=== PATIENT | female | born 1995 | race Caucasian/White ===

== ENCOUNTER 2016-08-21 12:27 | Emergency (ER) | payer OTHER ==
[2016-08-21 12:32] VITALS: BP 129/87
[2016-08-21 13:03] LABS: Manual Entry Verification MD; UR Preg Internal Control QC Line Present
--- NOTE | 2016-08-21 13:05 | ED ---
Lower Extremity - HPI Summary HPI Summary: Pt here w/ Rt ankle pain since twisting in the mud yesterday. Swelling aling lateral side. Painful with weight bearing. Denies numbness, tingling, weakness. Tried ibuprofen yesterday. Has not iced. No h/o injury here but does admit to spraining Lt ankle in the past.Pain is constant but worse w/ movement and WB as mentioned above. - History of Current Complaint Chief Complaint: EDExtremityLower Stated Complaint: RT ANKLE INJURY Time Seen by Provider: 08/21/16 12:34 Hx Obtained From: Patient Pain Intensity: 7 - Allergies/Home Medications Allergies/Adverse Reactions: Allergies Allergy/AdvReac Type Severity Reaction Status Date / Time No Known Allergies Allergy Verified 02/08/16 21:52 PMH/Surg Hx/FS Hx/Imm Hx Previously Healthy: Yes Endocrine/Hematology History: Denies: Hx Anticoagulant Therapy, Hx Blood Disorders, Hx Unexplained Bleeding Respiratory History: Reports: Hx Asthma Musculoskeletal History: Reports: Other Musculoskeletal History - Lt ankle sprain resolved w/o complications Sensory History: Reports: Hx Contacts or Glasses Opthamlomology History: Reports: Hx Contacts or Glasses - Surgical History Surgery Procedure, Year, and Place: NASAL SURGERY A CHILD Infectious Disease History: No Infectious Disease History: Denies: Traveled Outside the [place] in Last 30 Days - Family History Known Family History: Negative: Cardiac Disease, Hypertension, Diabetes - Social History Occupation: Student Lives: With Family Alcohol Use: None Substance Use Type: Reports: None Smoking Status (MU): Never Smoked Tobacco Review of Systems Negative: Fever, Chills Positive: no symptoms reported Musculoskeletal: Other - see HPI Skin: Negative Neurological: Negative Psychological: Normal All Other Systems Reviewed And Are Negative: Yes Physical Exam Triage Information Reviewed: Yes Vital Signs On Initial Exam: Initial Vitals Temp Pulse Resp BP Pulse Ox 97.8 F 86 14 129/87 100 08/21/16 12:30 08/21/16 12:30 08/21/16 12:30 08/21/16 12:30 08/21/16 12:30 Vital Signs Reviewed: Yes Appearance: Positive: Well-Appearing, No Pain Distress, Well-Nourished Skin: Positive: Warm, Dry - edema over Rt lateral malleolus w/o skin changes Head/Face: Positive: Normal Head/Face Inspection Eyes: Positive: Normal, EOMI, Conjunctiva Clear ENT: Positive: Hearing grossly normal, Pharynx normal - mucosa moist Respiratory/Lung Sounds: Positive: Breath Sounds Present Cardiovascular: Positive: Normal, Pulses are Symmetrical in both Upper and Lower Extremities Musculoskeletal: Positive: Strength/ROM Intact, Pain @ - anterior ankle mortise and medial malleolus are TTP; limited FROM d/t pain - worse w/ plantar flexion and inversion; heel NTTP - no gross deformity Neurological: Positive: Normal, Sensory/Motor Intact, Alert, Oriented to Person Place, Time, CN Intact II-III Psychiatric: Positive: Normal Diagnostics - Vital Signs Vital Signs Temp Pulse Resp BP Pulse Ox 08/21/16 12:30 97.8 F 86 14 129/87 100 - Laboratory Lab Statement: Any lab studies that have been ordered have been reviewed, and results considered in the medical decision making process. Lower Extremity Course/Dx - Diagnoses Provider Diagnoses: Left ankle sprain Discharge - Discharge Plan Condition: Stable Disposition: HOME Patient Education Materials: Ankle Sprain (ED), Ankle Stirrup Splint (ED), Crutch Instructions (ED) Referrals: [facility] [Outside] Additional Instructions: Rest, ice, elevate and wrap with CADEN for swelling Take ibuprofen 600mg every 6 hours with food for pain, swelling - may alternate with acetaminophen 650mg every 6 hours Use crutches to rest and weight bear as tolerated Gentle stretches Follow[facility] with [facility] in 1-2 weeks if symptoms persist
--- NOTE | 2016-08-21 13:36 | RAD ---
INDICATION: Right ankle pain and swelling one day after a slip and fall injury COMPARISON: None. TECHNIQUE: 3 views of the right ankle were obtained. FINDINGS: There is a very small amount of soft tissue swelling overlying the fibular malleolus. The bones are normal alignment. Joint spaces appear maintained. No fracture is seen. IMPRESSION: MILD RIGHT ANKLE SOFT TISSUE SWELLING WITHOUT UNDERLYING FRACTURE OR DISLOCATION. If the patient's symptoms persist, follow-up imaging is recommended.
== END 2016-08-21 14:04 | disposition home or self-care (01) ==
LOC: ED 12:27
DX: S93.402A Sprain of unspecified ligament of left ankle, initial encounter (principal); M25.571 Pain in right ankle and joints of right foot; X58.XXXA Exposure to other specified factors, initial encounter; Y93.9 Activity, unspecified; Y92.9 Unspecified place or not applicable
CPT/HCPCS: 81025; 99282

== ENCOUNTER 2017-01-29 03:29 | Inpatient (IN) | payer OTHER ==
[2017-01-29 04:21] LABS: Hematocrit 42 % (35-47); Hemoglobin 14.6 g/dl (12.0-16.0); Mean Corpuscular HGB Conc 35 g/dl (31-36); Mean Corpuscular Hemoglobin 31 pg (27-31); Mean Corpuscular Volume 89 fL (80-97); Mean Platelet Volume 8 um3 (7.4-10.4); Red Blood Count 4.67 10^6/ul (4.0-5.4); Red Cell Distribution Width 13 % (10.5-15); White Blood Count 7.4 10^3/ul (3.5-10.8)
[2017-01-29 04:34] LABS: ALT 14 U/L (7-52); AST 17 U/L (13-39); Albumin 4.8 g/dL (3.2-5.2); Alkaline Phosphatase 52 U/L (34-104); Anion Gap 9 mmol/L (2-11); BUN/Creatinine Ratio 13.2 (8-20); Blood Urea Nitrogen 10 mg/dL (6-24); CO2 Carbon Dioxide 24 mmol/L (22-32); Calcium 9.3 mg/dL (8.6-10.3); Chloride 105 mmol/L (101-111); EGFR African American 124.8 (>60); Globulin 2.9 g/dL (2-4); Glucose 103 mg/dL (70-100); Potassium 3.6 mmol/L (3.5-5.0); Sodium 138 mmol/L (133-145); Total Protein 7.7 g/dL (6.4-8.9)
[2017-01-29 04:35] LABS: Benzodiazepine Urine Screen None Detected (None Detect)
[2017-01-29 04:39] LABS: Urine Bacteria Absent (Absent); Urine Bilirubin Negative (Negative); Urine Glucose Negative (Negative); Urine Nitrite Negative (Negative)
[2017-01-29 04:50] LABS: Acetaminophen < 15 mcg/mL; Alcohol 200 mg/dL (<10); Salicylate < 2.50 mg/dL (<30)
[2017-01-29 05:05] LABS: TSH (Thyroid Stimulating Horm) 4.45 mcIU/mL (0.34-5.60)
--- NOTE | 2017-01-29 06:30 | ED ---
Joel Gutierrez Rebecca, scribed for Carlos Goldberg MD on 01/29/17 at 0359 . Psychiatric Complaint - HPI Summary HPI Summary: Pt is a 21 y/o F BIBA as a 941 who presents to ED c/o depression and SIs s/p self harm. Tonight, the pt put a belt around her neck and tightened it. She is unsure of how long she was like this, approximating 30 minutes, before she was found by a friend. Pt states that her neck feels "tense" though she denies any pain. - History Of Current Complaint Chief Complaint: EDMentalHealth Hx Obtained From: Patient Onset/Duration: Still Present Character: Depressed Aggravating Factor(s): Nothing Alleviating Factor(s): Nothing Associated Signs And Symptoms: Positive: Negative Has Suicidal: Reports: Thoughts, Demonstrates Gesture - Allergies/Home Medications Allergies/Adverse Reactions: Allergies Allergy/AdvReac Type Severity Reaction Status Date / Time [place] Allergy Rash Verified 01/29/17 03:35 PMH/Surg Hx/FS Hx/Imm Hx Endocrine/Hematology History: Denies: Hx Anticoagulant Therapy, Hx Blood Disorders, Hx Unexplained Bleeding Respiratory History: Reports: Hx Asthma Musculoskeletal History: Reports: Other Musculoskeletal History - Lt ankle sprain resolved w/o complications Sensory History: Reports: Hx Contacts or Glasses Opthamlomology History: Reports: Hx Contacts or Glasses - Surgical History Surgery Procedure, Year, and Place: NASAL SURGERY A CHILD Infectious Disease History: No Infectious Disease History: Denies: Traveled Outside the [place] in Last 30 Days - Family History Known Family History: Negative: Cardiac Disease, Hypertension, Diabetes - Social History Alcohol Use: None Substance Use Type: Reports: None Smoking Status (MU): Never Smoked Tobacco Review of Systems Negative: Fever Positive: Other - Neck is "tense"; negative neck pain Positive: Depressed, Other - Sis with attempted gesture All Other Systems Reviewed And Are Negative: Yes Physical Exam - Summary Physical Exam Summary: General: well-appearing, no pain distress Skin: warm, color reflects adequate perfusion, dry Head: normal Eyes: EOMI, RIANA ENT: normal, posterior pharynx is benign Neck: supple, nontender, no ecchymosis, no crepitus, FROM Respiratory: CTA, breath sounds present Cardiovascular: RRR Abdomen: soft, nontender Bowel: present Musculoskeletal: normal, strength/ROM intact Neurological: normal, sensory/motor intact, A&O x3 Psychological: tearful Triage Information Reviewed: Yes Vital Signs On Initial Exam: Initial Vitals Temp Pulse Resp BP Pulse Ox 98.6 F 119 20 138/81 97 01/29/17 03:35 01/29/17 03:35 01/29/17 03:35 01/29/17 03:35 01/29/17 03:35 Vital Signs Reviewed: Yes Diagnostics - Vital Signs Vital Signs Temp Pulse Resp BP Pulse Ox 01/29/17 03:35 98.6 F 119 20 138/81 97 - Laboratory Lab Results: Lab Results 01/29/17 01/29/17 01/29/17 Range/Units 04:04 04:04 04:04 WBC 7.4 (3.5-10.8) 10^3/ul RBC 4.67 (4.0-5.4) 10^6/ul Hgb 14.6 (12.0-16.0) g/dl Hct 42 (35-47) % MCV 89 (80-97) fL MCH 31 (27-31) pg MCHC 35 (31-36) g/dl RDW 13 (10.5-15) % Plt Count 261 (150-450) 10^3/ul MPV 8 (7.4-10.4) um3 Neut % (Auto) 64.5 (38-83) % Lymph % (Auto) 29.2 (25-47) % Mora % (Auto) 4.7 (1-9) % Eos % (Auto) 0.9 (0-6) % Baso % (Auto) 0.7 (0-2) % Absolute Neuts (auto) 4.8 (1.5-7.7) 10^3/ul Absolute Lymphs (auto) 2.2 (1.0-4.8) 10^3/ul Absolute Monos (auto) 0.3 (0-0.8) 10^3/ul Absolute Eos (auto) 0.1 (0-0.6) 10^3/ul Absolute Basos (auto) 0.1 (0-0.2) 10^3/ul Absolute Nucleated RBC 0 10^3/ul Nucleated RBC % 0.1 Sodium 138 (133-145) mmol/L Potassium 3.6 (3.5-5.0) mmol/L Chloride 105 (101-111) mmol/L Carbon Dioxide 24 (22-32) mmol/L Anion Gap 9 (2-11) mmol/L BUN 10 (6-24) mg/dL Creatinine 0.76 (0.51-0.95) mg/dL Est GFR ( Amer) 124.8 (>60) Est GFR (Non-Af Amer) 97.0 (>60) BUN/Creatinine Ratio 13.2 (8-20) Glucose 103 H (70-100) mg/dL Calcium 9.3 (8.6-10.3) mg/dL Total Bilirubin 0.80 (0.2-1.0) mg/dL AST 17 (13-39) U/L ALT 14 (7-52) U/L Alkaline Phosphatase 52 (34-104) U/L Total Protein 7.7 (6.4-8.9) g/dL Albumin 4.8 (3.2-5.2) g/dL Globulin 2.9 (2-4) g/dL Albumin/Globulin Ratio 1.7 (1-3) TSH 4.45 (0.34-5.60) mcIU/mL Beta HCG, Quant < 0.60 mIU/mL Urine Color Urine Appearance Urine pH (5-9) Ur Specific [place] (1.010-1.030) Urine Protein (Negative) Urine Ketones (Negative) Urine Blood (Negative) Urine Nitrate (Negative) Urine Bilirubin (Negative) Urine Urobilinogen (Negative) Ur Leukocyte Esterase (Negative) Urine WBC (Auto) (Absent) Urine RBC (Auto) (Absent) Urine Bacteria (Absent) Urine Glucose (Negative) Salicylates < 2.50 (<30) mg/dL Urine Opiates Screen None detected (None Detect) Acetaminophen < 15 mcg/mL Ur Barbiturates Screen None detected (None Detect) Ur Phencyclidine Scrn None detected (None Detect) Ur Amphetamines Screen None detected (None Detect) U Benzodiazepines Scrn None detected (None Detect) Urine Cocaine Screen None detected (None Detect) U Cannabinoids Screen None detected (None Detect) Serum Alcohol 200 H (<10) mg/dL 01/29/17 Range/Units 04:04 WBC (3.5-10.8) 10^3/ul RBC (4.0-5.4) 10^6/ul Hgb (12.0-16.0) g/dl Hct (35-47) % MCV (80-97) fL MCH (27-31) pg MCHC (31-36) g/dl RDW (10.5-15) % Plt Count (150-450) 10^3/ul MPV (7.4-10.4) um3 Neut % (Auto) (38-83) % Lymph % (Auto) (25-47) % Mora % (Auto) (1-9) % Eos % (Auto) (0-6) % Baso % (Auto) (0-2) % Absolute Neuts (auto) (1.5-7.7) 10^3/ul Absolute Lymphs (auto) (1.0-4.8) 10^3/ul Absolute Monos (auto) (0-0.8) 10^3/ul Absolute Eos (auto) (0-0.6) 10^3/ul Absolute Basos (auto) (0-0.2) 10^3/ul Absolute Nucleated RBC 10^3/ul Nucleated RBC % Sodium (133-145) mmol/L Potassium (3.5-5.0) mmol/L Chloride (101-111) mmol/L Carbon Dioxide (22-32) mmol/L Anion Gap (2-11) mmol/L BUN (6-24) mg/dL Creatinine (0.51-0.95) mg/dL Est GFR ( Amer) (>60) Est GFR (Non-Af Amer) (>60) BUN/Creatinine Ratio (8-20) Glucose (70-100) mg/dL Calcium (8.6-10.3) mg/dL Total Bilirubin (0.2-1.0) mg/dL AST (13-39) U/L ALT (7-52) U/L Alkaline Phosphatase (34-104) U/L Total Protein (6.4-8.9) g/dL Albumin (3.2-5.2) g/dL Globulin (2-4) g/dL Albumin/Globulin Ratio (1-3) TSH (0.34-5.60) mcIU/mL Beta HCG, Quant mIU/mL Urine Color Straw Urine Appearance Clear Urine pH 6.0 (5-9) Ur Specific [place] 1.003 L (1.010-1.030) Urine Protein Negative (Negative) Urine Ketones Negative (Negative) Urine Blood 1+ H (Negative) Urine Nitrate Negative (Negative) Urine Bilirubin Negative (Negative) Urine Urobilinogen Negative (Negative) Ur Leukocyte Esterase Negative (Negative) Urine WBC (Auto) Trace(0-5/hpf) (Absent) Urine RBC (Auto) Trace(0-2/hpf) (Absent) Urine Bacteria Absent (Absent) Urine Glucose Negative (Negative) Salicylates (<30) mg/dL Urine Opiates Screen (None Detect) Acetaminophen mcg/mL Ur Barbiturates Screen (None Detect) Ur Phencyclidine Scrn (None Detect) Ur Amphetamines Screen (None Detect) U Benzodiazepines Scrn (None Detect) Urine Cocaine Screen (None Detect) U Cannabinoids Screen (None Detect) Serum Alcohol (<10) mg/dL Result Diagrams: 01/29/17 04:04 01/29/17 04:04 Lab Statement: Any lab studies that have been ordered have been reviewed, and results considered in the medical decision making process. Course/Dx - Course Assessment/Plan: Allergy noted. Elevtaed BP noted. Medications reviewed. MHE PENDING AT SHIFT CHANGE. NO CRITICAL CARE TIME. - Differential Dx/Clinical Impression Provider Diagnosis: Choking episode, Mental health problem Discharge - Discharge Plan Condition: Stable Disposition: OTHER Discharge Disposition Comment: . Referrals: [facility] [Primary Care Provider] - The documentation as recorded by the Joel saeed Rebecca accurately reflects the service I personally performed and the decisions made by me, Carlos Goldberg MD.
[2017-01-30] MEDS ORDERED: hydrOXYzine HCL TAB* 50 MG PO PRN (14:47)
[2017-01-31] MEDS ORDERED: Influenza VAC *QUAD* 2017-18* 0.5 ML SYRINGE IM ONE (09:00)
[2017-01-31] MEDS ORDERED: Pneumococcal *Vac Polyvalent 0.5 ML VIAL IM ONE (09:00)
--- NOTE | 2017-01-31 12:45 | HP ---
H&P (Free Text) History and Physical: HPI: ---- Patient is a 21yo female with no significant PPHx. Patient presents to the [facility] ED, BIBA, on 9. status due to worsening depressive symptoms and is s/p suicidal gesture / suicide attempt where she was found with a belt around her neck while tightening it. Patient is psychotropic med naive and has no hx of outpt MH encounters. This is patient's 1st psychiatric admission. In the ED, patient noted to have a BAL of 200. She reports the evening prior to presentation to the ED she drank heavily after finding out she'd been lied to for months by her roommate. 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 Patient reports over the last month, she'd come to find out that her roommate had been lying to her about a number of things, ie: roommate's mother having cancer and things of this nature. Patient felt so upset to find out these things weren't true, she contacted her roommates mother, suggested therapy, and offered her help as a friend. She reported she stayed close with her roommate and monitored her and was happy to be told by her roommate that she was attending counseling to work on her issues. Patient reports approx. a month ago she found out that her roommate was still lying, now lying about things to others related to her. Patient reports now the roommate told people that patient's mother had cancer. She reports identifying this as the trigger of her drop in mood. Patient reports anger and frustration with her drop in grades as she prioritized her roommate over her studies. Patient reports though fair sleep, energy and reports she attended classes through this entire situation. Patient reports no drop in concentration , memory, or interest in her studies. Patient reports she found out just prior to this admission that her roommate actually wasn't in therapy. This precipitated her decision to drink and contributed to her SI and suicidal gesture / attempt. Patient currently denies SI/HI and AH/VH. She reports a good mood on interview and is bright in affect. Patient expresses increased insight on friends recent behavior and lies and their effect on her emotions and conduct. Sleep and appetite have been wnl since admission. Patient bright, pleasant, and social with peers and staff since admission. Patient continues to live with her roommate. She is focused on detaching from the friendship. Patient reports 1 prior suicide attempt which occurred in [place] Patient reports the stressor was the applications process for and frustrations with finding financial analyst intern for college. Patient denies hx of trauma in childhood. Patient reports no signs of psychosis, nor were any elicited on exam. Past Psych Hx: Inpt - Patient reports this is her 1st psychiatric admission. Outpt - Patient reports no hx of encounters at outpt clinics. Psychotropic med hx - Psychotropic med naive. Suicide attempt Hx / SIB Hx: Patient reports 1 prior suicide attempt which occurred in [place] Patient reports the stressor was the applications process and frustrations with finding financial analyst intern for college. She reports no hx of SIB. Trauma Hx: Patient denies hx of physical, emotional, or sexual abuse in childhood. Substance Hx: Patient denies hx of abuse of alcohol. She reports the evening prior to presentation to the ED she drank heavily after finding out she'd been lied to for months by her roommate. Patient denies hx of use of illicit substances. Medical Hx: Asthma Allergies: --------- NKDA [place] Family Hx: Patient reports hx of depression in family members on mom's side. Patient reports there is no family hx of KAYA issues. Patient reports there is no family hx of completed or attempted suicide. Social Hx: --------- -Born in [place] -Raised by mom and dad -Has an older sister. She is close with her sibling -HLOE: currently a [employer] at [employer] -Single, never , no kids -Lives in an apartment with roommate. -Patient reports no access to firearms. -Patient reports no stockpiles of old Rx pills. Home Medications: None VITALS: --------- Vital Signs (72 hours) 01/30/17 01/30/17 01/30/17 15:08 15:15 15:55 Temperature 98.7 F 98.7 F 98.6 F Pulse Rate 75 87 86 Respiratory 16 16 17 Rate Blood Pressure 107/73 107/73 115/87 (mmHg) O2 Sat by Pulse 100 99 100 Oximetry 02/01/17 07:25 Temperature 98.2 F Pulse Rate 77 Respiratory 16 Rate Blood Pressure 114/71 (mmHg) O2 Sat by Pulse 100 Oximetry LABS: -------- Laboratory Tests 01/29/17 01/29/17 01/29/17 04:04 04:04 04:04 WBC 7.4 RBC 4.67 Hgb 14.6 Hct 42 MCV 89 MCH 31 MCHC 35 RDW 13 Plt Count 261 MPV 8 Neut % (Auto) 64.5 Lymph % (Auto) 29.2 [place] % (Auto) 4.7 Eos % (Auto) 0.9 Baso % (Auto) 0.7 Absolute Neuts (auto) 4.8 Absolute Lymphs (auto) 2.2 Absolute Monos (auto) 0.3 Absolute Eos (auto) 0.1 Absolute Basos (auto) 0.1 Absolute Nucleated RBC 0 Nucleated RBC % 0.1 Sodium 138 Potassium 3.6 Chloride 105 Carbon Dioxide 24 Anion Gap 9 BUN 10 Creatinine 0.76 Est GFR ( Amer) 124.8 Est GFR (Non-Af Amer) 97.0 BUN/Creatinine Ratio 13.2 Glucose 103 H Calcium 9.3 Total Bilirubin 0.80 AST 17 ALT 14 Alkaline Phosphatase 52 Total Protein 7.7 Albumin 4.8 Globulin 2.9 Albumin/Globulin Ratio 1.7 TSH 4.45 Beta HCG, Quant < 0.60 Urine Color Urine Appearance Urine pH Ur Specific [place] Urine Protein Urine Ketones Urine Blood Urine Nitrate Urine Bilirubin Urine Urobilinogen Ur Leukocyte Esterase Urine WBC (Auto) Urine RBC (Auto) Urine Bacteria Urine Glucose Salicylates < 2.50 Urine Opiates Screen None detected Acetaminophen < 15 Ur Barbiturates Screen None detected Ur Phencyclidine Scrn None detected Ur Amphetamines Screen None detected U Benzodiazepines Scrn None detected Urine Cocaine Screen None detected U Cannabinoids Screen None detected Serum Alcohol 200 H 01/29/17 04:04 WBC RBC Hgb Hct MCV MCH MCHC RDW Plt Count MPV Neut % (Auto) Lymph % (Auto) [place] % (Auto) Eos % (Auto) Baso % (Auto) Absolute Neuts (auto) Absolute Lymphs (auto) Absolute Monos (auto) Absolute Eos (auto) Absolute Basos (auto) Absolute Nucleated RBC Nucleated RBC % Sodium Potassium Chloride Carbon Dioxide Anion Gap BUN Creatinine Est GFR ( Amer) Est GFR (Non-Af Amer) BUN/Creatinine Ratio Glucose Calcium Total Bilirubin AST ALT Alkaline Phosphatase Total Protein Albumin Globulin Albumin/Globulin Ratio TSH Beta HCG, Quant Urine Color Straw Urine Appearance Clear Urine pH 6.0 Ur Specific [place] 1.003 L Urine Protein Negative Urine Ketones Negative Urine Blood 1+ H Urine Nitrate Negative Urine Bilirubin Negative Urine Urobilinogen Negative Ur Leukocyte Esterase Negative Urine WBC (Auto) Trace(0-5/hpf) Urine RBC (Auto) Trace(0-2/hpf) Urine Bacteria Absent Urine Glucose Negative Salicylates Urine Opiates Screen Acetaminophen Ur Barbiturates Screen Ur Phencyclidine Scrn Ur Amphetamines Screen U Benzodiazepines Scrn Urine Cocaine Screen U Cannabinoids Screen Serum Alcohol PHYSICAL EXAM: Patient declines PE. Please see H&P documented in the [facility]-ED: Psychiatric Complaint note dated 01/29. MSE: ----- Appearance - thin build female, fair hygeine, in NAD Behavior - calm, cooperative Speech - RVR, prosody wnl Eye Contact - good Mood - "better" Affect - bright TP - linear and GD TC - insightful of her friends recent behavior and lies and their effect on her emotions and conduct Perception - no signs of psychosis noted or reported Orientation - A&Ox4 Cognition - intact Insight - fair Judgement - fair SI / HI - SI present on admission, currently denies both ASSESSMENT: 1. Adjustment d/o, with disturbance of emotions and conduct PLAN: ------ 1. Continue admission to [facility] for safety and symptom mx. 2. Patient interested in psychotherapy. Initiation of an anti-depressant isn't indicated. 3. Continue compiling collateral information from family. 4. Referral to outpt MH services. 5. Patient to participate in milieu activities and groups.
[2017-01-31] MEDS: Acetaminophen TAB* 325 MG PO PRN ×2 (13:57→22:57)
[2017-02-01 07:47] VITALS: BP 114/71
[2017-02-01] MEDS: Acetaminophen TAB* 325 MG PO PRN (08:36)
--- NOTE | 2017-02-02 08:07 | DS ---
Subjective - Subjective Service Types: [address] [facility] Day Mgmt simple under 30 min Subjective: PATIENT DISCHARGED ON 02/01/17 at 1500 to her mother who had come to pick her up. On day of discharge, patient is noted to still be bright in affect, pleasant, socializing with female peers and attending all groups. She has been engaged in therapy since admission. Patient has not been observed displaying emotional lability, but has been calm and cooperative. Patient again denies SI/HI and AH/VH. Patient reports good sleep and appetite. Patient reports feeling ready for discharge. Per discussion with patient's mom and dad who are on the unit visiting, they feel also patient is ready for discharge and feel comfortable with her discharge today. Patient is psychiatrically stable. She is linear and GD in TP and future oriented in TC. 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 Discharge plan discussed, patient acknowledges understanding and is amenable. Patient instructed to call 911, crisis hotline, or self present to the ED if SI recurs. Patient will be discharged home with mom and dad who will return at 1500. Objective - Appearance Appearance: Well Developed/Nourished Dysmorphic Features: No Hygiene: Normal Grooming: Well Kept - Behavior Psychomotor Activities: Normal Exhibits Abnormal Movement: No - Attitude and Relatedness Attitude and Relatedness: Cooperative Eye Contact: Fair - Speech Quality: Unpressured Latencies: Normal Quantity: Appropriate - Mood Patient's Decription of Mood: "Good" - Affect Observed Affect: Good Affect Consistent with: Euthymia - Thought Process Patient's Thought Process: Coherent Thought Content: No Passive Wish, No Suicidal Planning, No Homicidal Ideation, No Paranoid Ideation - Sensorium Experiencing Hallucinations: No, Sensorium is Clear Type of Hallucinations: Visual: No, Auditory: No, Command: No - Level of Consciousness Level of Consciousness: Alert Orientation: Yes Intact, Yes Orientated to Time, Yes Orientated to Place, Yes Orientated to Person - Impulse Control Impulse Control: Intact - Insight and Judgement Insight and Judgement: Fair - Group Participation Particating in Group Activities: Yes - Medication Management Medication Management Adherence: Yes Treatment Course & Assessment Clinical Course & Impression: HOSPITAL COURSE: Patient is a 21yo female with no significant PPHx. Patient presents to the [facility] ED, [place], on status due to worsening depressive symptoms and is s/p suicidal gesture / suicide attempt where she was found with a belt around her neck while tightening it. Patient is psychotropic med naive and has no hx of outpt MH encounters. This is patient's 1st psychiatric admission. In the ED, patient noted to have a BAL of 200. She reports the evening prior to presentation to the ED she drank heavily after finding out she'd been lied to for months by her roommate. Patient and her roommate are students at [employer]. Patient reports over the last month, she'd come to find out that her roommate had been lying to her about a number of things, ie: roommate's mother having cancer and things of this nature. Patient felt so upset to find out these things weren't true, she contacted her roommates mother, suggested therapy, and offered her help as a friend. She reported she stayed close with her roommate and monitored her and was happy to be told by her roommate that she was attending counseling to work on her issues. Patient reports approx. a month ago she found out that her roommate was still lying, now lying about things to others related to her. Patient reports now the roommate told people that patient's mother had cancer. She reports identifying this as the trigger of her drop in mood. Patient reports anger and frustration with her drop in grades as she prioritized her roommate over her studies. Patient reports though fair sleep, energy and reports she attended classes through this entire situation. Patient reports no drop in concentration , memory, or interest in her studies. Patient reports she found out just prior to this admission that her roommate actually wasn't in therapy. This precipitated her decision to drink and contributed to her SI and suicidal gesture / attempt. Patient currently denies SI/HI and AH/VH. She reports a good mood on interview and is bright in affect. Patient expresses increased insight on friends recent behavior and lies and their effect on her emotions and conduct. Sleep and appetite have been wnl since admission. Patient bright, pleasant, and social with peers and staff since admission. Patient continues to live with her roommate. She is focused on detaching from the friendship. Patient reports 1 prior suicide attempt which occurred in [place] Patient reports the stressor was the applications process for and frustrations with finding financial intern for college. Patient denies hx of trauma in childhood. Patient reports no signs of psychosis, nor were any elicited on exam. Patient on admission day #1, day of discharge, patient noted to be at baseline. 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 As at admission to the unit, patient is noted to still be bright in affect, pleasant, socializing with female peers and attending all groups. She has been engaged in therapy since admission. Patient has not been observed displaying emotional lability, but has been calm and cooperative. Patient again denies SI/HI and AH/VH. Patient reports good sleep and appetite. Patient reports feeling ready for discharge. Per discussion with patient's mom and dad who are on the unit visiting, they feel also patient is ready for discharge and feel comfortable with her discharge today. Patient is psychiatrically stable. She is linear and GD in TP and future oriented in TC. 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 Patient requested referral for psychotherapy. Discharge plan discussed, patient acknowledges understanding and is amenable. Patient instructed to call 911, crisis hotline, or self present to the ED if SI recurs. Patient will be discharged home with mom and dad who will return at 1500. DISCHARGE DIAGNOSIS: Adjustment disorder, with disturbance of mood and conduct CONSULTANTS: NONE PERTINENT LABS: Laboratory Tests 01/29/17 01/29/17 01/29/17 04:04 04:04 04:04 WBC 7.4 RBC 4.67 Hgb 14.6 Hct 42 MCV 89 MCH 31 MCHC 35 RDW 13 Plt Count 261 MPV 8 Neut % (Auto) 64.5 Lymph % (Auto) 29.2 [place] % (Auto) 4.7 Eos % (Auto) 0.9 Baso % (Auto) 0.7 Absolute Neuts (auto) 4.8 Absolute Lymphs (auto) 2.2 Absolute Monos (auto) 0.3 Absolute Eos (auto) 0.1 Absolute Basos (auto) 0.1 Absolute Nucleated RBC 0 Nucleated RBC % 0.1 Sodium 138 Potassium 3.6 Chloride 105 Carbon Dioxide 24 Anion Gap 9 BUN 10 Creatinine 0.76 Est GFR ( Amer) 124.8 Est GFR (Non-Af Amer) 97.0 BUN/Creatinine Ratio 13.2 Glucose 103 H Calcium 9.3 Total Bilirubin 0.80 AST 17 ALT 14 Alkaline Phosphatase 52 Total Protein 7.7 Albumin 4.8 Globulin 2.9 Albumin/Globulin Ratio 1.7 TSH 4.45 Beta HCG, Quant < 0.60 Urine Color Urine Appearance Urine pH Ur Specific [place] Urine Protein Urine Ketones Urine Blood Urine Nitrate Urine Bilirubin Urine Urobilinogen Ur Leukocyte Esterase Urine WBC (Auto) Urine RBC (Auto) Urine Bacteria Urine Glucose Salicylates < 2.50 Urine Opiates Screen None detected Acetaminophen < 15 Ur Barbiturates Screen None detected Ur Phencyclidine Scrn None detected Ur Amphetamines Screen None detected U Benzodiazepines Scrn None detected Urine Cocaine Screen None detected U Cannabinoids Screen None detected Serum Alcohol 200 H 01/29/17 04:04 WBC RBC Hgb Hct MCV MCH MCHC RDW Plt Count MPV Neut % (Auto) Lymph % (Auto) [place] % (Auto) Eos % (Auto) Baso % (Auto) Absolute Neuts (auto) Absolute Lymphs (auto) Absolute Monos (auto) Absolute Eos (auto) Absolute Basos (auto) Absolute Nucleated RBC Nucleated RBC % Sodium Potassium Chloride Carbon Dioxide Anion Gap BUN Creatinine Est GFR ( Amer) Est GFR (Non-Af Amer) BUN/Creatinine Ratio Glucose Calcium Total Bilirubin AST ALT Alkaline Phosphatase Total Protein Albumin Globulin Albumin/Globulin Ratio TSH Beta HCG, Quant Urine Color Straw Urine Appearance Clear Urine pH 6.0 Ur Specific [place] 1.003 L Urine Protein Negative Urine Ketones Negative Urine Blood 1+ H Urine Nitrate Negative Urine Bilirubin Negative Urine Urobilinogen Negative Ur Leukocyte Esterase Negative Urine WBC (Auto) Trace(0-5/hpf) Urine RBC (Auto) Trace(0-2/hpf) Urine Bacteria Absent Urine Glucose Negative Salicylates Urine Opiates Screen Acetaminophen Ur Barbiturates Screen Ur Phencyclidine Scrn Ur Amphetamines Screen U Benzodiazepines Scrn Urine Cocaine Screen U Cannabinoids Screen Serum Alcohol DISCHARGE MEDICATIONS: NONE FOLLOW-UP APPTS: Appt made for psychotherapy intake by SW for w/in 2 weeks of discharge. Clear for Discharge: Adequate Clinical Respons, Acceptable Safety Profile Discharge Planning - Discharge Planning Discharge Plan: Outpatient Follow Up Outpatient Program: Private Clinician(s) Recommendations for Continuing Care: Psychotherapy Medications: NONE Discharge Planning: Prescriptions provided for discharge [x] Yes [] No Follow up care details as per social work arrangements. Patient response to discharge plan: [] eager for discharge [x] agreeable with discharge plan [] ambivalent about discharge [] disagrees with discharge today
== END 2017-02-01 15:50 | disposition home or self-care (01) | DRG 882 ==
LOC: ED 03:29 → BSU 01-30 14:46
PROVIDERS: ADMIT Psychiatry & Neurology Psychiatry; ATTEND Psychiatry & Neurology Psychiatry
DX: F43.25 Adjustment disorder with mixed disturbance of emotions and conduct (principal); J45.909 Unspecified asthma, uncomplicated; Z91.018 Allergy to other foods; Z81.8 Family history of other mental and behavioral disorders
CPT/HCPCS: 36415; 80053; 80307; 80320; 80329; 81003; 81015; 84443; 84702; 85025; 90686; 99222; 99238; A9270-GY; G0480